=== PATIENT | female | born 1950 | race Caucasian/White ===

== ENCOUNTER 2016-07-06 15:16 | Emergency (ER) | payer OTHER, MEDICARE ==
[~2016-07-06 15:16] MED LIST: KEFLEX500 MG PO; LOSARTAN POTASS50 MG PO; TOPROL XL 25MG25 MG PO; WELCHOL 625 MG625 MG PO
--- NOTE | 2016-07-06 15:27 | ED CARDIAC/CP/PALPITATIONS ---
History of Present Illness General Chief Complaint: Chest Pain Stated Complaint: CP Source: patient, family, EMS Exam Limitations: no limitations Vital Signs & Intake/Output Vital Signs & Intake/Output Vital Signs Date Time Temp Pulse Resp B/P B/P Pulse O2 O2 Flow FiO2 Mean Ox Delivery Rate 07/06 2114 70 150/80 07/06 1940 72 174/74 07/06 1814 72 18 174/74 96 07/06 1635 65 16 162/88 98 Room Air 07/06 1604 172/84 07/06 1540 Room Air 07/06 1532 96.6 86 18 181/86 96 Allergies Coded Allergies: No Known Allergies (07/06/16) Reconcile Medications Cephalexin (Keflex) 500 MG CAP 1 TAB PO TID INFECTED CYST Colesevelam Hydrochloride (Welchol) 625 MG TAB 3 TAB PO BID CHOLESTEROL ( Reported) Losartan Potassium 50 MG TAB 1 TAB PO BID BP (Reported) Metoprolol Succ XL (Toprol XL 25MG) 25 MG TAB 1 TAB PO DAILY BP (Reported) Triage Nurses Notes Reviewed? yes Onset: Abrupt Duration: minute(s): (20), constant, gone now Timing: recent history Quality/Severity: moderate, pressure, tightness Location: substernal Radiation: no radiation Activities at Onset: emotional stress Prior Chest Pain/Card Workup: similar sx 9 yrs ago with neg angio Nitro Today/Relief: no nitro taken today Aspirin Today: 81 mg x 1, provided by EMS Associated Symptoms: denies HPI: 65-year-old female presents emergency room for evaluation. Patient states that she was at a hearing for a family member and was receiving bad news when she suddenly developed substernal chest tightness pressure. There is no radiation of the pain or shortness of breath diaphoresis nausea or vomiting. Patient states that she walked next door where EMS was and they took her blood pressure. According to the patient EMS had a systolic blood pressure of 260" she was given aspirin in route. The patient arrives without any complaints. No pain no shortness of breath. She has a history of similar symptoms once 9 years ago at which time she had a a negative angiogram. She is been quite with all her medications. The patient took her metoprolol this morning and is due to take her losartan later this evening. She's been compliant with her medications. She denies tobacco or alcohol use. She reports recent increased life stressors no recent immobility or leg swelling her gear grinder is Dr. Kahn. (KIN COLE) Past History Travel History Traveled to [place] past 21 day No Medical History Any Pertinent Medical History? see below for history Cardiovascular: hypertension, hyperlipidemia Musculoskeletal: CYST ON STERNUM Other Medical Hx: Hidradenitis Tetanus Vaccine: 04/29/13 Surgical History Surgical History: non-contributory Psychosocial History Who do you live with Spouse What is your primary language Liberian Family History Hx Contributory? No (KIN COLE) Review of Systems Review of Systems Constitutional: Reports: see HPI. All Other Systems: Reviewed and Negative Comments Review of systems: See HPI, All other systems negative. Constitutional, no chills no fever, no malaise no weight loss HEENT: No visual changes no sore throat no congestion, no ear pain Cardiovascular: chest pain , no palpitation , no orthopnea Skin: no rashes, no change in skin Respiratory: No dyspnea no cough no sputum no hemoptysis GI: No nausea no vomiting, no diarrhea, no bloating/constipation : No dysuria No hematuria, no frequency, no discharge Muscle skeletal: No joint pain, no joint swelling, no back pain, no neck pain, Neurologic: No numbness no confusion, no headache Psych: No stress no depression,. Heme/endocrine: No bruising no bleeding Immunology: No lymphadenopathy (KIN COLE) Physical Exam Physical Exam General Appearance: well developed/nourished, alert, awake Cardiovascular: regular rate/rhythm Comments: Well-developed well-nourished person in no acute distress HEENT: Normal EENT exam; PERRL, EOMI, no nystagmus. HEAD is atraumatic. moist mucous membranes. Neck: Supple, no lymphadenopathy, normal range of motion without pain or tenderness Back: Nontender, no CVA tenderness. Full range of motion Cardiovascular: Regular rate and rhythms no murmurs rubs or gallops, normal JVP Respiratory: Chest nontender.There were no bony deformities, no asymmetry. No respiratory distress. Patient speaking in full complete sentences. Breath sounds clear to auscultation bilaterally: NO W/R/R Abdomen: Soft, nontender nondistended, no appreciable organomegaly. Normal bowel sounds. No rebound/guarding, No appreciable enlargement of the abdominal aorta, No ascites. Extremity: No edema, full range of motion of extremities, normal and equal pulses bilaterally, 5 out of 5 strength noted to bilateral upper and lower extremities Neuro: Alert oriented x3, motor sensory normal, cranial nerves II through XII grossly intact. There were no obvious focal neurologic abnormalities. Skin: No appreciable rash on exposed skin, skin is warm and dry. Psych: Mood and affect is normal, memory and judgment is normal. Core Measures ACS in differential dx? Yes Severe Sepsis Present: No Septic Shock Present: No (SILVIO REIS,KIN) Progress Differential Diagnosis: AMI, aortic dissection, atrial fibrillation, CHF/pulm edema, costochondritis, musculoskeletal pain, myocarditis, pancreatitis, pericarditis, pneumonia, pneumothorax, PSVT, pulmonary embolism, PVCs/PACs, unstable angina, V-fib/V-Tach Plan of Care: Orders Procedure Date/time Status Regular Diet 07/07 B Active TROPONIN LEVEL 07/06 1944 Complete EKG 07/06 1944 Active Telemetry/Mechanical Applications Engineer 07/06 1533 Active TROPONIN LEVEL 07/06 1519 Complete COMPREHENSIVE METABOLIC PANEL 07/06 1519 Complete CBC WITHOUT DIFFERENTIAL 07/06 1519 Complete EKG 07/06 1519 Active Laboratory Tests 07/06/16 1951: Troponin I < 0.01 07/06/16 1543: Anion Gap 10, Estimated GFR > 60, BUN/Creatinine Ratio 15.0, Glucose 106 H, Calcium 9.6, Total Bilirubin 0.6, AST 56 H, ALT 110 H, Alkaline Phosphatase 92 , Troponin I < 0.01, Total Protein 7.7, Albumin 4.3, Globulin 3.4, Albumin/ Globulin Ratio 1.3, CBC w Diff NO MAN DIFF REQ, RBC 4.68, MCV 97.7, MCH 33.1 H, RDW 14.3, MPV 9.6, Gran % 53.7, Lymphocytes % 34.1, Monocytes % 9.5 H, Eosinophils % 2.0, Basophils % 0.7, Absolute Granulocytes 4.0, Absolute Lymphocytes 2.6, Absolute Monocytes 0.7 H, Absolute Eosinophils 0.2, Absolute Basophils 0.1, PUBS MCHC 33.9 Labs ordered old records reviewed patient is pain-free at this time without any complaints we will recheck her blood pressure discussed with patient plan of care x-rays ordered case discussed with Dr. House 07/06/2016 4:32:45 PM discussed the patient leave all her lab results x-ray findings today need for repeat troponin at 1945 07/06/2016 5:42:19 PM patient resting chest pain free at this time 07/06/2016 7:14:23 PM patient resting in no apparent distress denies any complaints at present. Patient medicated losartan 50 mg by mouth which she normally takes at nighttime. (KIN COLE) Diagnostic Imaging: Viewed by Me: Radiology Read. Discussed w/RAD: Radiology Read. Radiology Impression: PATIENT: NIDHI BEACH PRESENT AGE: 65 PATIENT ACCOUNT NO: [id number] : 49 LOCATION: [facility] ORDERING PHYSICIAN: KIN REIS SERVICE DATE: 07/06/16 EXAM TYPE: RAD - XRY-PORTABLE CHEST XRAY EXAMINATION: XR PORTABLE CHEST CLINICAL INFORMATION: 65-year-old female patient with chest pain. COMPARISON: Last chest x-ray done 05/09/2012 TECHNIQUE: Portable AP semierect view of the chest was obtained. FINDINGS: The heart is normal in size considering the AP projection. Pulmonary vascularity is normal. The lungs are clear. There is no sign of edema or pleural effusion. IMPRESSION: No acute disease. Heart within normal limits. DICTATED BY: JAYDEN CARNEY MD DATE/TIME DICTATED:07/06/161548 COMMERCIAL ART INSTRUCTOR:BASSEM DATE/TIME TRANSCRIBED:07/06/161548 CONFIDENTIAL, DO NOT COPY WITHOUT APPROPRIATE AUTHORIZATION. <Electronically signed in Other Vendor System> SIGNED BY: JAYDEN CARNEY MD 07/06/16 1602 Initial ED EKG: normal sinus rhythm at 80, nonspecific ST segment changes normal axis Prior EKG: unchanged (12/2008) Repeat EKG: unchanged Rhythm Strip: normal sinus rhythm Hand-Off Endorsed To: KIN CASTELLON Endorsed Time: 1999 Pending: labs (KIN COLE) Comments: Kin ANGUIANO PA-C discussed with me for handoff was patient is pending a second troponin and second EKG. Second EKG was performed showing no changes 07/06/2016 9:11:53 PM while patient was in the emergency room she was asymptomatic and had relief of her chest pain prior to arrival Patient's second set of cardiac enzymes troponin and EKG was unremarkable. Patient was strongly advised to follow-up with gear grinder and begin 81 mg of aspirin and patient will comply. Discussed disposition with . (KIN CASTELLON) Departure Departure Disposition: HOME OR SELF CARE Condition: Stable Clinical Impression Primary Impression: Chest pain Referrals: Evelyne ALFONSO MD (PCP/Family) Departure Forms: Customer Survey General Discharge Information (KIN COLE) Departure Additional Instructions: Follow-up with her primary care physician as well as gear grinder Dr. KAHN. continue taking your medications as prescribed. Return to the ER at anytime sooner with any concerns Begin a 81 mg of aspirin regimen once a day (KIN CASTELLON) PA/REINFORCING STEEL ERECTOR Co-Sign Statement Statement: ED Attending supervision documentation- [X] I saw and evaluated the patient. I have also reviewed all the pertinent lab results and diagnostic results. I agree with the findings and the plan of care as documented in the PA's/REINFORCING STEEL ERECTOR's documentation. [X] I have reviewed the ED Record and agree with the PA's/REINFORCING STEEL ERECTOR's documentation. [] Additions or exceptions (if any) to the PAs/REINFORCING STEEL ERECTOR's note and plan are summarized below: [] (SONNY RAGSDALE,WILLIAM) Critical Care Note Critical Care Note Critical Care Time: non-applicable (KIN COLE)
--- NOTE | 2016-07-06 16:02 | RADIOLOGY REPORT ---
EXAMINATION: XR PORTABLE CHEST CLINICAL INFORMATION: 65-year-old female patient with chest pain. COMPARISON: Last chest x-ray done 05/09/2012 TECHNIQUE: Portable AP semierect view of the chest was obtained. FINDINGS: The heart is normal in size considering the AP projection. Pulmonary vascularity is normal. The lungs are clear. There is no sign of edema or pleural effusion. IMPRESSION: No acute disease. Heart within normal limits.
[2016-07-06 16:13] LABS: ABSOLUTE BASOPHIL COUNT 0.1 /CUMM (0.0-0.2); ABSOLUTE EOSINOPHIL COUNT 0.2 /CUMM (0.0-0.7); ABSOLUTE LYMPH COUNT 2.6 /CUMM (1.2-3.4); ABSOLUTE MONOCYTE COUNT 0.7 /CUMM (0.10-0.60); BASOPHIL % 0.7 % (0.0-2.0); GRANULOCYTE % 53.7 % (42.2-75.2); HEMATOCRIT 45.7 % (37-47); MEAN CORPUSCULAR HGB 33.1 PG (27.0-31.0); MEAN CORPUSCULAR HGB CONC 33.9 G/DL (33.0-37.0); MEAN CORPUSCULAR VOLUME 97.7 FL (81.0-99.0); MEAN PLATELET VOLUME 9.6 FL (7.4-10.4); PLATELET COUNT 228 /CUMM (130-400); RBC DISTRIBUTION WIDTH 14.3 % (11.5-14.5); RED BLOOD CELL CT 4.68 /CUMM (4.20-5.40); WHITE BLOOD CELL COUNT 7.5 /CUMM (4.8-10.8)
[2016-07-06 21:14] VITALS: BP 150/80
== END 2016-07-06 21:15 ==
LOC: ERH 15:16
PROVIDERS: Emergency Medicine
DX: R07.89 Other chest pain (principal)
CPT/HCPCS: 93005; 93010